=== PATIENT | male | born 1985 | race Caucasian/White ===

== ENCOUNTER → 2019-09-03 | Outpatient (CLI) | payer OTHER ==
[~2019-09-03] MED LIST: CRS350T PO; ETD400T PO; HYDR-2890 PO; HYDR-757 PO; MULT-974 PO; ONDA-42 SL; TMSL.4C PO
--- NOTE | 2019-09-03 09:41 | Diagnostic Imaging Report ---
PROCEDURE: US Hepatic (Liver). TECHNIQUE: Multiple real-time grayscale images were obtained over the right upper quadrant in various projections. INDICATION: Elevated liver function tests. COMPARISON: There are no prior ultrasound examinations available for comparison. FINDINGS: The liver is prominent measuring 19 cm in length. Much of the liver shows increased echogenicity. This does suggest fatty metamorphosis and this would be consistent with the findings of the CT abdomen/pelvis exam of 12/25/2013. There was a small area of diminished echogenicity in the gallbladder fossa. 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 There is no focal mass involving the liver and the biliary tree is not abnormally dilated. Spectral and color-flow imaging of the portal vein shows that the vein is patent. There is no evidence for cholelithiasis or acute cholecystitis. The common bile duct as well as the pancreas, the aorta, and the inferior vena cava were obscured by bowel gas. The right kidney is unremarkable. IMPRESSION: 1. 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 2. The area of diminished echogenicity in the gallbladder fossa is most likely due to sparing of the normal hepatic parenchyma from fatty metamorphosis as oppose to an underlying abnormality of the liver. If further study is desired however, then CT would be recommended. 3. There is no evidence for cholelithiasis or acute cholecystitis. Dictated by: Dictated on workstation # [id number]
== END ==
LOC: RAD 07:31
PROVIDERS: ATTEND Family Medicine
DX: R74.8 Abnormal levels of other serum enzymes (principal)
CPT/HCPCS: 76705